=== PATIENT | male | born 1965 | race Caucasian/White ===

== ENCOUNTER → 2023-09-12 | Outpatient (REF) | payer OTHER | LOC: M SFHCRHEU 15:49 | PROVIDERS: ATTEND Internal Medicine Rheumatology | DX: M05.79 Rheumatoid arthritis with rheumatoid factor of multiple sites without organ or systems involvement (principal); R79.82 Elevated C-reactive protein (CRP); R76.8 Other specified abnormal immunological findings in serum; Z79.899 Other long term (current) drug therapy ==

== ENCOUNTER → 2023-12-11 | Outpatient (REF) | payer OTHER | LOC: M SFHCRHEU 16:29 | PROVIDERS: ATTEND Internal Medicine Rheumatology | DX: M05.79 Rheumatoid arthritis with rheumatoid factor of multiple sites without organ or systems involvement (principal); R79.82 Elevated C-reactive protein (CRP); R76.8 Other specified abnormal immunological findings in serum; Z79.899 Other long term (current) drug therapy; Z53.9 Procedure and treatment not carried out, unspecified reason ==

== ENCOUNTER → 2024-03-13 | Outpatient (REF) | payer OTHER | LOC: M SFHCRHEU 14:18 | PROVIDERS: ATTEND Internal Medicine Rheumatology | DX: M05.79 Rheumatoid arthritis with rheumatoid factor of multiple sites without organ or systems involvement (principal) ==